=== PATIENT | male | born 1945 | race Caucasian/White ===

== ENCOUNTER → 2018-07-05 | Outpatient (CLI) | payer MEDICARE, BC ==
[~2018-07-05] MED LIST: GADOBUTROL 7.5 MMOL/7.5 ML VIAL ONE
== END | disposition home or self-care (01) ==
LOC: CFH 12:17
PROVIDERS: ATTEND Radiology Radiation Oncology
DX: G93.9 Disorder of brain, unspecified (principal); D33.3 Benign neoplasm of cranial nerves
CPT/HCPCS: 70553; A9585

== ENCOUNTER → 2018-08-09 | Outpatient (CLI) | payer MEDICARE, BC | END | disposition home or self-care (01) | LOC: ROC 08:00 | PROVIDERS: ATTEND Radiology Radiation Oncology | DX: D33.3 Benign neoplasm of cranial nerves (principal) | CPT/HCPCS: G0463 ==